=== PATIENT | male | born 1950 | race Caucasian/White ===

== ENCOUNTER 2018-11-25 12:50 | Inpatient (IN) | payer BC ==
--- NOTE | 2018-11-16 17:16 | HP ---
HISTORY AND PHYSICAL: DATE OF ADMISSION/SURGERY: 11/25/18 DATE OF OFFICE VISIT: 11/16/18 SURGEON: Emy Nicole MD * (DICTATED BY ELENA OQUENDO) PROCEDURE: Left total hip arthroplasty. CHIEF COMPLAINT: Left hip pain. HISTORY OF PRESENT ILLNESS: Mr. Gupta is a 68-year-old gentleman with complaints of left hip pain. He has failed conservative treatment and elected to proceed with a left total hip arthroplasty. PAST MEDICAL HISTORY: History of duodenal ulcer. PAST SURGICAL HISTORY: Lumbar cyst removal. CURRENT MEDICATIONS: 1. Glucosamine/chondroitin. 2. Calcium. 3. Magnesium. 4. Zinc. 5. Fish oil. 6. Daily multivitamin. ALLERGIES: No known drug allergies. FAMILY HISTORY: Breast cancer. SOCIAL HISTORY: He is a 68-year-old gentleman, lives with his . He does not smoke or use drugs. Uses occasional alcohol. REVIEW OF SYSTEMS: A complete 14-point review of systems was reviewed with the patient. It was all negative or noncontributory. He denies history of DVT, PE , hepatitis, HIV, or anesthesia problems. PHYSICAL EXAMINATION GENERAL: He is well developed, well nourished, in no acute distress. VITAL SIGNS: He stands about 5 feet 11 inches tall, weighs 179 pounds. Blood pressure is 127/76 and heart rate is 70. HEENT: Normocephalic, atraumatic. NECK: Supple. No palpable lymph nodes. PULMONARY: The lungs are clear to auscultation bilaterally. CARDIO: Regular rate and rhythm. Strong S1, S2. ABDOMEN: Soft, nontender, and nondistended. NEUROLOGICAL: He is alert and oriented x3. MUSCULOSKELETAL: Left lower extremity: The skin is intact. There are no open wounds or abrasions. He walks with an antalgic-type gait favoring his left hip. He has decreased internal and external rotation of the left hip. He has a 2+ dorsalis pedis pulse, intact sensation, and his lower extremity muscle group strengths are intact at 5/5. ASSESSMENT AND PLAN: Mr. Gupta is a 68-year-old gentleman with end-stage osteoarthritis of the left hip. He has failed conservative treatment and elected to proceed with a left total hip arthroplasty. The surgery is scheduled for 11/25/[address] Nicole discussed the risks and benefits of the surgery at today's visit and all of his questions were answered. He will follow up with Dr. Nicole 2 weeks after the surgery. ELENA OQUENDO [id number]/[facility] #: [id number] JESSE
[~2018-11-25 12:50] MED LIST: Buffered Lidocaine 1% SYRIN* 1 ML/SYRINGE INTRADERM ONE; Bupivacaine 0.5% SDV PF* 30ML VIAL ONE; Dexamethasone IV* 4 MG/ML 1 ML (4 MG) ONE; KETAMINE HCL* 50 MG/ML 10 ML VIAL ONE; Lactated Ringers 1000 ML Bag* 1,000 ML IV SCH; Lidocaine 2% PF * 5 ML VIAL ONE; Midazolam* 1 MG/ML 2 ML VIAL (2 MG) ONE; Propofol* 10 MG/ML 20 ML BTL ONE; Propofol* 500 MG/50 ML BTL ONE; ROPIVACAINE 5 MG/ML 30 ML BTL (0.5%) ONE; fentaNYL* 50 MCG/ML 2 ML VIAL (100 MCG VIAL) ONE
--- OUTSIDE RECORDS SUMMARY | 2018-11-25 12:54 | XMS REPORT | Continuity of Care Document ---
:1950 External Reference #:[id number] Author Name Kavitha Maxwell Care Team Providers Name Role Phone Wiliam Whelan MD Primary Care Physician Unavailable Payers Type Date Identification Numbers Payment Provider Subscriber Policy Number: [id number] [facility] Sandra Blair PayID: [id number] [address] [place] [address] Advance Directives Description No Information Available Problems Date Description Provider Status Onset: 10/14/2018 Localized, primary osteoarthritis of the Emy Nicole M.D. Active pelvic region and thigh Family History Date Family Member(s) Problem(s) Comments General Cancer Social History Type Date Description Comments Sex Unknown Lives With Spouse Occupation Currently Working ETOH Use Currently consumes alcohol Tobacco Use Start: Unknown Patient has never smoked Smoking Status Reviewed: 10/14/18 Patient has never smoked Exercise Type/Frequency Exercises regularly Allergies, Adverse Reactions, Alerts Description No Known Drug Allergies Medications Medication Date Status Form Strength Qnty SIG Indications Ordering Provider Glucosamine Active Unknown Chondroitin 1500 Complex Calcium/Magnesium/ Active Unknown Zinc Fish Oil Active Unknown Budesonide Active Unknown Immunizations Description No Information Available Vital Signs Date Vital Result Comment 10/14/2018 9:09am Weight 179.00 lb Heart Rate 68 /min BP Systolic 118 mmHg BP Diastolic 72 mmHg Body Temperature 97.4 F Pain Level 7 Results Description No Information Available Procedures Description No Information Available Encounters Type Date Location Provider Dx Diagnosis Office Visit 10/14/2018 [facility] M25.552 Pain in left hip 8:[facility] M16.12 Unilateral primary osteoarthritis, left hip Plan of Treatment Future Appointment(s):11/25/2018 2:30 pm - ELENA Méndez at [facility]A.11/25/2018 2:30 pm - Emy Nicole M.D. at [facility].11/16/2018 9:00 am - Emy Nicole M.D. at [facility].A.10/14/2018 - Emy Nicole M.D.M25.552 Pain in left hipFollow up:Follow up:M16.12 Unilateral primary osteoarthritis, left hip
[2018-11-25] MEDS ORDERED: ceFAZolin 2 GM PREMIX in ORs 2 GM/50 ML BAG IVPB ONE (13:06)
[2018-11-25] MEDS ORDERED: Buffered Lidocaine 1% SYRIN* 1 ML/SYRINGE INTRADERM ONE (13:07)
[2018-11-25] MEDS ORDERED: ROPIVACAINE 5 MG/ML 30 ML BTL (0.5%) ONE (13:43)
[2018-11-25] MEDS ORDERED: Ondansetron TAB* 4 MG PO PRN (14:30)
[2018-11-25] MEDS ORDERED: Morphine INJ* 2 MG/ML 1 ML SYRINGE (TWO MG - NEW SYRINGE VERSION) IV PRN (14:30)
[2018-11-25] MEDS ORDERED: diPHENhydraMINE IV* 50 MG/ML 1 ml VIAL (BENADRYL) IV PRN (14:30)
[2018-11-25] MEDS ORDERED: Magnesium Hydroxide LIQ* 30 ML UDC PO PRN (14:30)
[2018-11-25] MEDS ORDERED: oxyCODONE TAB* 5 MG TAB PO PRN (14:30)
[2018-11-25] MEDS ORDERED: Cyclobenzaprine TAB* 10 MG PO PRN (14:30)
[2018-11-25] MEDS ORDERED: Bisacodyl SUPP* 10 MG SUPP PR PRN (14:30)
[2018-11-25] MEDS ORDERED: Polyethylene Glycol 3350* 17 GM PACKET PO PRN (14:30)
[2018-11-25] MEDS ORDERED: oxyCODONE/Acetamin 5/325 MG* TAB PO PRN ×2 (14:30)
[2018-11-25] MEDS ORDERED: Ondansetron INJ* 2 MG/ML VIAL IV PRN ×2 (14:30→17:33)
[2018-11-25] MEDS ORDERED: Midazolam* 1 MG/ML 2 ML VIAL (2 MG) ONE (15:15)
[2018-11-25] MEDS ORDERED: Propofol* 500 MG/50 ML BTL ONE (15:49)
[2018-11-25] MEDS ORDERED: HYDROmorphone INJ1* 1 MG/ML SYRINGE IV PRN (17:33)
[2018-11-25] MEDS ORDERED: Naloxone* 0.4 MG/ML 1 ML VIAL IV PRN (17:33)
[2018-11-25] MEDS ORDERED: Acetaminophen IV 1GM/100ML * 1,000 MG/100 ML VIAL IVPB ONE (17:33)
[2018-11-25] MEDS ORDERED: Ketorolac INJ* 30 MG/ML 1 ML VIAL IV PRN (17:33)
[2018-11-25] MEDS ORDERED: Acetaminophen IV 1GM/100ML * 100 ML ONE (19:07)
[2018-11-25] MEDS ORDERED: Ketorolac INJ* 30 MG/ML 1 ML VIAL ONE (19:14)
[2018-11-25] MEDS ORDERED: traMADol TAB* 50 MG ONE (19:14)
[2018-11-25] MEDS: traMADol TAB* 50 MG PO PRN (19:25)
[2018-11-25] MEDS: Lactated Ringers 1000 ML Bag* 1,000 ML IV SCH (20:09)
[2018-11-25] MEDS ORDERED: Warfarin TAB(*) 6 MG PO ONE (21:00)
[2018-11-25] MEDS: Magnesium Hydroxide LIQ* 30 ML UDC PO SCH (22:25)
[2018-11-25] MEDS: Docusate CAP* 100 MG PO SCH (22:25)
[2018-11-25] MEDS: ceFAZolin 1 GM ADVAN(*) 1 GM in NS 0.9% 50 ML* 50 ML IVPB SCH (22:30)
--- NOTE | 2018-11-25 23:30 | OP ---
DATE OF OPERATION: 11/25/18 - ROOM #346 DATE OF : 52 SURGEON: Emy Nicole MD. COMBINING MACHINE OPERATOR: ELENA Rogers. Ms. Banks did help throughout the procedure with preparation of the leg, wound retraction, manipulation of the hip, and wound closure. ANESTHESIOLOGIST: Dr. Cisneros. ANESTHESIA: Spinal. PRE-OP DIAGNOSIS: Severe end-stage degenerative osteoarthritis of the left hip joint. POST-OP DIAGNOSIS: Severe end-stage degenerative osteoarthritis of the left hip joint. OPERATIVE PROCEDURE: Left total hip arthroplasty. COMPLICATIONS: None. ESTIMATED BLOOD LOSS: 200 cc. SPECIMEN: Femoral head and acetabular reaming sent to Pathology. HARDWARE USED: This is uncemented D1G total hip hardware. For the cup, a Tritanium cluster hole shell 58F. Two screws were used, both the torque cancellous screws, one length 20 mm and one length 25 mm. The polyethylene used was a Trident X3 0-degree polyethylene liner 40F. For the stem, an Accolade II, size 6 with a 127-degree neck. For the head, a Biolox delta ceramic V40 femoral head 40+0. BRIEF HISTORY/INDICATIONS: Mr. Gupta is a 68-year-old gentleman with years of increasingly severe left hip stiffness and pain. His radiograph showed end- stage arthritis. He failed conservative treatment with anti-inflammatories, pain medication, and physical therapy. Due to continued pain and decreased quality of life, he elected to undergo left total hip arthroplasty. Informed consent was obtained from the patient. He understood the risks of surgery included but were not limited to bleeding, infection, damage to nearby structures, continued pain, need for further surgery, intraoperative fracture, nerve palsy, hardware failure or loosening, dislocation, leg length discrepancy , stroke, heart attack, blood clot, and . He wished to proceed. INTRAOPERATIVE FINDINGS: Intraoperatively, the patient had a picture of femoral acetabular impingement. He had a dysplastic acetabulum with significant bone wear and loss along the superior edge. He had extensive osteophyte formation around the acetabular rim as well as the femoral head-neck junction. DESCRIPTION OF PROCEDURE: Mr. Gupta was identified in the preanesthesia unit. His left lower extremity was marked as the correct operative side. Informed consent was signed and placed in the chart. The patient was taken to the operating room and placed under anesthesia without difficulty. A Tolentino catheter was placed. The patient was placed in the right lateral decubitus position on the pegboard. All bony prominences were well padded. Left lower extremity was prepped and draped in the usual sterile fashion. Preop time-out was made to correctly identify the patient's side and site. Appropriate perioperative antibiotics were given within 1 hour of incision. A standard posterior hip incision was made with a 10 blade and carried down to the lateral fascial layer. Lateral fascial layer was incised in line with the skin incision. Charnley retractor was placed. The piriformis and conjoint tendons were identified and elevated off the posterolateral femur using electrocautery. These were tagged with #5 Ethibond. Electro-cautery was used to make a standard capsular flap and this was also tagged with #5 Ethibond. The hip was carefully dislocated. Lesser troch to center of the femoral head measured 68 mm. Oscillating saw was used to make the femoral neck cut. The femoral head was removed. The femur was carefully retracted anteriorly. After appropriate placement of retractors, the acetabulum was well visualized. The acetabulum was noted to have significant wear along the superior rim. A long-handled knife was used to sharply remove any remaining labrum from the acetabular rim. The acetabulum was then sequentially reamed up to a size 57. A 57 reamer developed a bleeding subchondral bone bed. A 57 trial had appropriate stability with anteversion and abduction angle, which were acceptable. Final implant chosen was a 58F Tritanium cluster hole shell. This was impacted into the acetabulum without difficulty. The cup was stable with appropriate anteversion and abduction angle. For extra stability, a 20 mm and 25 mm screws were placed in the superoposterior quadrant. The polyethylene chosen was Trident X3 0-degree polyethylene liner. This was 40F. Next, attention was turned to preparation of the proximal femur. A canal finder was used to enter the proximal femur. The proximal femur was sequentially broached up to a size 6. Size 6 broach had an excellent fit and appropriate anteversion. A 127 neck trial was placed as well as the 40+0 head trial. Lesser troch to center of the femoral head measured 70 mm. The hip was reduced and taken through a range of motion. The hip was stable in all positions. There was good soft tissue tension. There was appropriate leg length. The hip was carefully dislocated. All trials were removed. Final implant chosen was an Accolade II size 6 with a 127-degree neck. The stem was impacted into the femoral canal without difficulty. The stem was stable with appropriate anteversion. A Biolox delta ceramic V40 head 40 with a +0 adaptor sleeve was placed and impacted onto the femoral neck. Lesser troch to the center of the femoral head measured 70 mm. The hip was reduced and taken through a range of motion. The hip was stable in all positions. There was good leg length and appropriate soft tissue tension. The hip was copiously irrigated with sterile saline. Previously tagged tendons and capsule were reapproximated to the posterolateral femur through two trochanteric drill holes. The lateral fascial layer was closed using number 1 vicryls, the rest of the incision was closed in a layered fashion using 0 and 2-0 vicryls. Skin was closed using running 3-0 Monocryl and Dermabond. Sterile Adaptic, 4x4s, and paper tape were used to cover the incision. The patient's anesthesia was reversed without difficulty. He was taken to the PACU in stable condition. Intended weightbearing will be weightbearing as tolerated. Intended DVT prophylaxis will be Eliquis. [id number]/[facility] #: [id number] JESSE
[2018-11-26 05:59] LABS: Hematocrit 32 % (42-52); Hemoglobin 11.4 g/dl (14.0-18.0); Mean Platelet Volume 7.4 fL (7.4-10.4); Platelet Count 223 10^3/ul (150-450)
[2018-11-26 06:21] LABS: Calcium 8.7 mg/dL (8.6-10.3); EGFR Non-African American 95.1 (>60); Potassium 4.1 mmol/L (3.5-5.0)
[2018-11-26] MEDS: Acetaminophen TAB* 325 MG PO SCH ×2 (06:34→12:59)
[2018-11-26] MEDS: ceFAZolin 1 GM ADVAN(*) 1 GM in NS 0.9% 50 ML* 50 ML IVPB SCH ×2 (06:37→14:54)
[2018-11-26] MEDS: Lactated Ringers 1000 ML Bag* 1,000 ML IV SCH (06:38)
[2018-11-26] MEDS ORDERED: NS 0.9% 1000 ML* 1,000 ML IV SCH (07:30)
[2018-11-26] MEDS: Magnesium Hydroxide LIQ* 30 ML UDC PO SCH (08:06)
[2018-11-26] MEDS: Docusate CAP* 100 MG PO SCH (08:06)
[2018-11-26] MEDS: traMADol TAB* 50 MG PO PRN (08:09)
[2018-11-26] MEDS ORDERED: Apixaban* 2.5 MG TAB PO SCH (09:00)
--- NOTE | 2018-11-26 09:46 | PN ---
Progress Note - Progress Note Date of Service: 11/26/18 SOAP: Subjective: [] Patient was seen and examined at bedside. This morning he had soft BPs, fluid bolus was ordered. He had an episode of "wooziness" and hypotension after participation with PT which resolved with rest and continuation of fluid bolus. Denies chest pain, shortness of breath, irregular heartbeats, dizziness or nausea. Has no pain of his operative site. Objective: []General: Well appearing, NAD LLE: left hip dressing CDI without surrounding erythema, thigh is soft, DF/PF intact, sensation intact to light touch distally, DP2+ Calves supple and nontender without erythema, edema or palpable cords Assessment: []POD1 sp left total hip arthroplasty Plan: []WBAT PT/OT Posterior hip precautions Eliquis 2.5 mg po BID x 30 days for DVT prophylaxis Pt did quite well with PT this morning, if Bp remains stable and no lightheadedness will consider DC home this afternoon Vital Signs Temp 98.5 F 11/26/18 07:20 Pulse 62 11/26/18 09:21 Resp 20 11/26/18 09:21 BP 102/58 11/26/18 09:22 Pulse Ox 94 11/26/18 09:21 Intake & Output 11/25/18 11/26/18 11/26/18 18:59 06:59 18:59 Intake Total 1050 3685 0 Output Total 125 1400 Balance 925 2285 0 Weight 179 lb Intake: IV Fluids 1050 1035 ABX - CEFAZOLIN 55 LR 1000 980 NS 50ML, Cefazolin 2G 50 Oral 2650 0 Output: Tolentino 125 1400 Laboratory Last Values Hgb 11.4 g/dl (14.0-18.0) L 11/26/18 05:26 Hct 32 % (42-52) L 11/26/18 05:26 Plt Count 223 10^3/ul (150-450) 11/26/18 05:26 MPV 7.4 fL (7.4-10.4) 11/26/18 05:26 INR (Anticoag Therapy) 1.00 (0.77-1.02) 11/26/18 05:26 Sodium 135 mmol/L (135-145) 11/26/18 05:26 Potassium 4.1 mmol/L (3.5-5.0) 11/26/18 05:26 Chloride 102 mmol/L (101-111) 11/26/18 05:26 Carbon Dioxide 27 mmol/L (22-32) 11/26/18 05:26 Anion Gap 6 mmol/L (2-11) 11/26/18 05:26 BUN 13 mg/dL (6-24) 11/26/18 05:26 Creatinine 0.81 mg/dL (0.67-1.17) 11/26/18 05:26 Est GFR ( Amer) 115.0 (>60) 11/26/18 05:26 Est GFR (Non-Af Amer) 95.1 (>60) 11/26/18 05:26 BUN/Creatinine Ratio 16.0 (8-20) 11/26/18 05:26 Glucose 122 mg/dL (70-100) H 11/26/18 05:26 Calcium 8.7 mg/dL (8.6-10.3) 11/26/18 05:26
[2018-11-26] MEDS ORDERED: Enoxaparin(*) 40 MG/0.4 ML SYR SUBCUT SCH (12:00)
[2018-11-26 15:56] VITALS: BP 107/55
--- NOTE | 2018-11-26 21:35 | DS ---
DISCHARGE SUMMARY: DATE OF ADMISSION: 11/25/18 DATE OF DISCHARGE: 11/26/18 PROVIDER: Emy Nicole MD * (DICTATED BY ELENA LACKEY) PREOPERATIVE DIAGNOSIS: Severe end-stage degenerative osteoarthritis of the left hip joint. OPERATIVE PROCEDURE: Left total hip arthroplasty. HISTORY: Mr. Gupta is a 68-year-old gentleman. He has increasingly severe left hip stiffness and pain. He failed conservative management and elected to undergo left total hip arthroplasty. HOSPITAL COURSE: The patient was admitted to [facility] on . He underwent left total hip arthroplasty with Dr. Nicole without complications. Postop day #1: He was well appearing, in no acute distress. Left hip dressing was changed. Incision clean, dry and intact without any surrounding erythema. Thigh was soft. Dorsiflexion and plantar flexion intact. Sensation intact to light touch distally. DP 2+. In the morning, the patient did have a feeling of wooziness and soft blood pressures. He was given fluid bolus, which he responded to very well. He did not have any wooziness, lightheadedness or dizziness for the rest of the day. His blood pressure did improve with measures of 123/59, 107/55, both of which times he felt quite well without any dizziness, lightheadedness or wooziness whatsoever. At time of discharge, vitals include temperature 97.9, pulse rate 67, respiratory rate 16, oxygen saturation 99, blood pressure 107/55. DISCHARGE MEDICATIONS: 1. Glucosamine sulfate 1 tab p.o. q. a.m. 2. [place]-3 fatty acid 2 tabs p.o. q. a.m. 3. Calcium carbonate 600 mg p.o. q. a.m. 4. Multivitamin 1 tab p.o. q. a.m. 5. Psyllium husk 1 tablet 1 p.o. b.i.d. 6. Probiotic 1 tab p.o. daily. 7. Acetaminophen 975 mg p.o. q.8 hours. 8. Eliquis 2.5 mg p.o. b.i.d. 9. Docusate 100 mg p.o. b.i.d. 10. Tramadol 50 mg p.o. q.6 hours p.r.n., max daily dose of 8. DISCHARGE PLAN: The patient will be discharged to home. He will be weightbearing as tolerated. Continue hip precautions. DVT prophylaxis Eliquis 2.5 mg every 12 hours for 30 days. Pain control with tramadol 50 mg 1 to 2 tablets every 6 hours as needed for pain, maximum 8 tabs per day. The patient understands that should he feel dizzy, woozy, lightheaded, he should remain seated, ensure he is getting proper fluid and food intake and contact medical provider with any further concern. Follow up with Dr. Nicole in 10 to 14 days. ELENA LACKEY [id number]/[facility] #: [id number] JESSE
== END 2018-11-26 17:00 | disposition home health service (06) | DRG 301 ==
LOC: AA 12:50 → SSU 19:53
PROVIDERS: ADMIT Orthopaedic Surgery Adult Reconstructive Orthopaedic Surgery; ATTEND Orthopaedic Surgery Adult Reconstructive Orthopaedic Surgery
PROC: 0SRB04A Replacement of Left Hip Joint with Ceramic on Polyethylene Synthetic Substitute, Uncemented, Open Approach (ICD-10-PCS; principal; 2018-11-25 14:30)
DX: M16.12 Unilateral primary osteoarthritis, left hip (principal); G89.29 Other chronic pain; M54.40 Lumbago with sciatica, unspecified side; K64.8 Other hemorrhoids; E78.2 Mixed hyperlipidemia; M25.752 Osteophyte, left hip; I95.9 Hypotension, unspecified; Z79.01 Long term (current) use of anticoagulants; Z72.89 Other problems related to lifestyle; Z80.3 Family history of malignant neoplasm of breast; Z86.010 Personal history of colon polyps; Q65.89 Other specified congenital deformities of hip
CPT/HCPCS: 36415; 80048; 85014; 85018; 85049; 85610; A9270-GY; C1713; C1776; J0690; J1100; J1885; J2250; J2704; J2795; J3010

== ENCOUNTER 2020-10-03 05:57 | Observation (INO) ==
[2020-10-03] MEDS ORDERED: Lactated Ringers 1000 ml BAG 1,000 ML IV SCH (06:00)
[2020-10-03] MEDS ORDERED: Buffered Lidocaine 1% SYRIN 1 ml INTRADERM ONE (06:00)
[2020-10-03] MEDS ORDERED: ceFAZolin 2 GM PREMIX 2 GM/50 ML BAG ONE (06:17)
[2020-10-03] MEDS ORDERED: Propofol 10 MG/ML 20 ML BTL ONE ×3 (07:05→09:18)
[2020-10-03] MEDS ORDERED: Lidocaine 2% PF 5 ML VIAL ONE ×2 (07:05→07:29)
[2020-10-03] MEDS ORDERED: Midazolam 2 mg/2 ml VIAL 1 mg/ml 2 ml VIAL (2 mg) ONE (07:14)
[2020-10-03] MEDS ORDERED: Ondansetron 4 mg VIAL 2 MG/ML 2 ml VIAL ONE ×2 (07:14→08:53)
[2020-10-03] MEDS ORDERED: ROPIVACAINE 5 MG/ML 30 ML BTL (0.5%) ONE ×2 (07:18→07:28)
[2020-10-03] MEDS ORDERED: Dexmedetomidine 200 mcg/2 ml 2 ml VIAL (200 mcg) ONE (07:29)
[2020-10-03] MEDS ORDERED: Ondansetron 4 mg VIAL 2 MG/ML 2 ml VIAL IV PRN ×2 (08:29→10:43)
[2020-10-03] MEDS ORDERED: HYDROmorphone 1 MG/1 ML SYRINGE IV PRN (08:29)
[2020-10-03] MEDS ORDERED: Naloxone 0.4 mg VIAL 0.4 mg/ml 1 ml VIAL IV PRN (08:29)
[2020-10-03] MEDS ORDERED: Glycopyrrolate IV 0.2 MG/ML 1 ML VIAL ONE (08:32)
[2020-10-03] MEDS ORDERED: Bupivacaine 0.5% SDV PF 30ML VIAL ONE (08:48)
[2020-10-03] MEDS ORDERED: EPHEDrine (Pressors) 50 MG/ML VIAL ONE ×2 (08:56→09:24)
[2020-10-03] MEDS ORDERED: Ondansetron ODT 4 mg TAB 4 MG TAB PO PRN (10:43)
[2020-10-03] MEDS ORDERED: Morphine 2 MG/ML SYRINGE IV PRN (10:43)
[2020-10-03] MEDS ORDERED: Lactulose 30 ml UDC PO PRN (10:43)
[2020-10-03] MEDS ORDERED: diPHENhydraMINE 25 mg TAB PO PRN (10:43)
[2020-10-03] MEDS ORDERED: Magnesium Hydroxide LIQ 30 ML UDC PO PRN (10:43)
[2020-10-03] MEDS ORDERED: diPHENhydraMINE IV 50 MG/ML 1 ml VIAL (BENADRYL) IV PRN (10:43)
[2020-10-03] MEDS: Lactated Ringers 1000 ml BAG 1,000 ML IV SCH ×2 (13:54→22:21)
[2020-10-03] MEDS: ceFAZolin 1 GM ADVAN 1 GM in NS 0.9% 50 ML 50 ML IVPB SCH (19:43)
[2020-10-03] MEDS: Magnesium Hydroxide LIQ 30 ML UDC PO SCH (21:09)
[2020-10-04] MEDS: ceFAZolin 1 GM ADVAN 1 GM in NS 0.9% 50 ML 50 ML IVPB SCH ×2 (01:36→08:46)
[2020-10-04 06:25] LABS: Hematocrit 31 % (42-52); Hemoglobin 11.1 g/dL (14.0-18.0); Mean Platelet Volume 7.7 fL (7.4-10.4); Platelet Count 175 10^3/uL (150-450)
[2020-10-04 06:46] LABS: BUN/Creatinine Ratio 17.6 (8-20); Calcium 8.3 mg/dL (8.6-10.3); EGFR African American 100.3 (>60); EGFR Non-African American 82.9 (>60)
[2020-10-04] MEDS: Magnesium Hydroxide LIQ 30 ML UDC PO SCH (08:09)
[2020-10-04] MEDS ORDERED: Vitamin THERAPEUTIC TAB PO SCH (09:00)
[2020-10-04 11:52] VITALS: BP 130/66
== END 2020-10-04 15:03 | disposition home or self-care (01) ==
LOC: SSU 05:57 → OR 05:57
PROVIDERS: ADMIT Orthopaedic Surgery Adult Reconstructive Orthopaedic Surgery; ATTEND Orthopaedic Surgery Adult Reconstructive Orthopaedic Surgery